=== PATIENT | male | born 1970 | race Caucasian/White ===

== ENCOUNTER 2017-12-11 06:49 | Inpatient (IN) | payer OTHER, BC ==
[2017-12-11] MEDS ORDERED: Meropenem 500 MG SDV ONE ×2 (07:14→11:17)
[2017-12-11] MEDS ORDERED: fentaNYL 250 MCG/5 ML SDV ONE ×2 (07:19→10:49)
[2017-12-11] MEDS ORDERED: Propofol 200 MG/20 ML SDV ONE (07:20)
[2017-12-11] MEDS ORDERED: Glycopyrrolate 0.2 MG/ML 5 ML MDV ONE (07:20)
[2017-12-11] MEDS ORDERED: Rocuronium 50 MG/5 ML Vial ONE (07:20)
[2017-12-11] MEDS ORDERED: Dexamethasone 4 MG/ML SDV ONE (07:20)
[2017-12-11] MEDS ORDERED: Succinylcholine 200 MG/10 ML MDV ONE (07:20)
[2017-12-11] MEDS ORDERED: Ondansetron 4 MG/2 ML SDV ONE (07:20)
[2017-12-11] MEDS ORDERED: Neostigmine Methylsulfate 1 MG/ML 5 ML Syringe ONE (07:20)
[2017-12-11] MEDS ORDERED: Naloxone 0.4 MG/ML SDV IVPUSH PRN (07:28)
[2017-12-11] MEDS ORDERED: HYDROmorphone/Normal Saline 15 MG/30 ML PCA IV PRN (07:28)
[2017-12-11] MEDS ORDERED: Gabapentin 300 MG Cap PO ONE (07:30)
[2017-12-11] MEDS ORDERED: Acetaminophen 500 MG Tab PO ONE (07:30)
[2017-12-11] MEDS ORDERED: Scopolamine 1.5 MG Transdermal Patch TOP SCH (07:30)
[2017-12-11] MEDS ORDERED: Dextrose 5%-Lactated Ringers 1,000 ML IV SCH (07:45)
[2017-12-11] MEDS ORDERED: cefOXitin 2 GM in Sodium Chloride 0.9% 50 ML IV ONE (08:00)
[2017-12-11] MEDS ORDERED: Lidocaine 2% 100 MG/5 ML Syringe IVPUSH ONE (09:00)
[2017-12-11] MEDS ORDERED: Ropivacaine 50 ML, Dexamethasone 8 MG, EPINEPHrine 0.4 MG, Sodium Chloride 0.9% 27.6 ML NERVRT SCH ×4 (09:00)
[2017-12-11] MEDS ORDERED: Ketamine 500 MG/5 ML MDV IV SCH (09:00)
[2017-12-11] MEDS ORDERED: Bupivacaine 0.5%/EPINEPHrine 1:200,000 50 ML MDV ONE (10:03)
[2017-12-11] MEDS ORDERED: Lactated Ringers 1,000 ML ONE (10:40)
[2017-12-11] MEDS: Lidocaine 0.4%/D5W 2 GM/500 ML BAG IV SCH (12:59)
[2017-12-11] MEDS ORDERED: Labetalol 20 MG/4 ML Syringe IVPUSH PRN (14:00)
[2017-12-11] MEDS ORDERED: Ondansetron 4 MG/2 ML SDV IVPUSH PRN (14:00)
[2017-12-11] MEDS ORDERED: hydrOXYzine HCl 100 MG/2 ML SDV IM PRN (14:00)
[2017-12-11] MEDS ORDERED: Metoclopramide 10 MG/2 ML SDV IVPUSH PRN (14:00)
[2017-12-11] MEDS ORDERED: Pantoprazole 40 MG Vial IVPUSH SCH (15:00)
[2017-12-11] MEDS: Gabapentin 250 MG/5 ML Solution ML 470 ML Bottle PO SCH ×2 (15:42→21:52)
[2017-12-11] MEDS: cefOXitin 2 GM in Sodium Chloride 0.9% 50 ML IV SCH ×2 (15:43→21:51)
[2017-12-11] MEDS: Acetaminophen Soln 650 MG/20.3 ML UD Cup PO SCH ×2 (15:44→21:52)
[2017-12-11] MEDS: Liraglutide (rDNA Origin) 0.6 MG/0.1 ML 3 ML Pen SUBCUT SCH (15:48)
[2017-12-11] MEDS ORDERED: MVI, Adult with Vitamin K 10 ML, Thiamine 200 MG, Chromium/Copper/Mang/Selen/Zn 1 ML in... IV SCH ×4 (16:00)
[2017-12-11] MEDS ORDERED: Tamsulosin 0.4 MG Cap.ER PO ONE ×2 (18:56→22:00)
[2017-12-11] MEDS: Heparin Sodium 5,000 Units/ML Vial SUBCUT SCH (19:22)
[2017-12-11] MEDS: diphenhydrAMINE 50 MG/ML SDV IVPUSH PRN (21:54)
[2017-12-11] MEDS: Dextrose 5%-Lactated Ringers 1,000 ML IV SCH (22:58)
[2017-12-12] MEDS ORDERED: Iohexol 647 MG/ML 50 ML SDV PO STA (02:08)
[2017-12-12] MEDS: cefOXitin 2 GM in Sodium Chloride 0.9% 50 ML IV SCH ×4 (03:00→21:25)
[2017-12-12] MEDS: Acetaminophen Soln 650 MG/20.3 ML UD Cup PO SCH ×4 (03:00→21:23)
[2017-12-12] MEDS: Lidocaine 0.4%/D5W 2 GM/500 ML BAG IV SCH (03:00)
[2017-12-12] MEDS: Dextrose 5%-Lactated Ringers 1,000 ML IV SCH (05:13)
[2017-12-12] MEDS: Heparin Sodium 5,000 Units/ML Vial SUBCUT SCH ×2 (06:14→17:51)
[2017-12-12] MEDS ORDERED: Dextrose 5%-Lactated Ringers 1,000 ML IV SCH (08:45)
[2017-12-12] MEDS ORDERED: Loratadine 10 MG Tab PO PRN (08:50)
[2017-12-12] MEDS: SCOPOLAMINE PATCH CHECK TOP SCH (09:02)
[2017-12-12] MEDS: Gabapentin 250 MG/5 ML Solution ML 470 ML Bottle PO SCH ×3 (09:03→21:23)
[2017-12-12] MEDS: Liraglutide (rDNA Origin) 0.6 MG/0.1 ML 3 ML Pen SUBCUT SCH (09:03)
--- NOTE | 2017-12-12 09:06 | CR ---
Limited upper GI The patient is status post Will-en-Y gastric bypass. There is no extravasation of contrast. The mo deirdre pouch empties readily into a nondilated Will limb. No complications are evident. Impression: 1. Status post Will-en-Y gastric bypass without evidence for complication.
[2017-12-12] MEDS: Famotidine 20 MG Tab PO SCH (10:37)
[2017-12-12] MEDS: Lisinopril 2.5 MG Tab PO SCH (10:37)
[2017-12-12] MEDS: Docusate Sodium 100 MG Cap PO SCH ×2 (10:37→21:24)
[2017-12-12] MEDS: Bisacodyl 5 MG Tab PO SCH ×2 (10:37→21:24)
[2017-12-12] MEDS: HYDROmorphone 2 MG Tab PO PRN ×2 (11:37→19:30)
[2017-12-12] MEDS: Haloperidol 5 MG Tab PO PRN (12:00)
[2017-12-12] MEDS ORDERED: Haloperidol Lactate 5 MG/ML SDV IM ONE (12:00)
[2017-12-12] MEDS: MVI, Adult with Vitamin K 10 ML, Thiamine 200 MG, Chromium/Copper/Mang/Selen/Zn 1 ML in... IV SCH ×4 (15:47)
[2017-12-12] MEDS: Tamsulosin 0.4 MG Cap.ER PO SCH (21:25)
[2017-12-12] MEDS: diphenhydrAMINE 50 MG/ML SDV IVPUSH PRN (23:01)
[2017-12-13] MEDS: Acetaminophen Soln 650 MG/20.3 ML UD Cup PO SCH ×4 (03:29→21:47)
[2017-12-13] MEDS: cefOXitin 2 GM in Sodium Chloride 0.9% 50 ML IV SCH ×2 (03:30→09:40)
[2017-12-13] MEDS: Heparin Sodium 5,000 Units/ML Vial SUBCUT SCH ×2 (05:49→17:02)
[2017-12-13] MEDS: Gabapentin 250 MG/5 ML Solution ML 470 ML Bottle PO SCH ×3 (08:09→21:47)
[2017-12-13] MEDS: HYDROmorphone 2 MG Tab PO PRN ×4 (08:09→21:46)
[2017-12-13] MEDS ORDERED: Polyethylene Glycol 3350 Powder 119 GM Bottle PO ONE (08:30)
[2017-12-13] MEDS ORDERED: Cyanocobalamin (Vitamin B12) 1,000 MCG/ML SDV IM ONE (09:00)
[2017-12-13] MEDS: Famotidine 20 MG Tab PO SCH (09:30)
[2017-12-13] MEDS: Bisacodyl 5 MG Tab PO SCH ×2 (09:30→21:46)
[2017-12-13] MEDS: SCOPOLAMINE PATCH CHECK TOP SCH (09:31)
[2017-12-13] MEDS: Lisinopril 2.5 MG Tab PO SCH (09:31)
[2017-12-13] MEDS: Liraglutide (rDNA Origin) 0.6 MG/0.1 ML 3 ML Pen SUBCUT SCH (09:32)
[2017-12-13] MEDS: Docusate Sodium 100 MG Cap PO SCH ×2 (09:34→21:47)
[2017-12-13] MEDS: Haloperidol 5 MG Tab PO PRN (09:52)
--- NOTE | 2017-12-13 10:49 | PN ---
DATE OF SERVICE: 12/13/2017 SUBJECTIVE: Amrit is postoperative day #2. He states his pain is controlled. He is not passing gas and has not had a bowel movement. REVIEW OF SYSTEMS: Remainder of review of systems negative for any pertinent positives and negatives. OBJECTIVE: GENERAL: Amrit Kimbrough is a 47-year-old male. He is alert and orientated. VITAL SIGNS: TPR 96.8, 80, 16, and blood pressure 119/58. HEENT: Negative. NECK: Supple. HEART: Regular rate and rhythm. LUNGS: Clear. ABDOMEN: Incisions look good. Abdominal binder is on. EXTREMITIES: Without peripheral edema. ASSESSMENT: Diagnostic laparoscopy with lysis of adhesions, small bowel resection, mobilization of omentum over anastomosis to separate from mesh and pelvic sidewall for extensive intraabdominal adhesions, partial small bowel obstruction adjunct to and involving the jejunojejunostomy junction, and there was no recurrent incisional hernia. Date of surgery, 12/11/2017. Surgeon, Chao Hutson MD. PLAN: 1. Rx MiraLAX 119 grams in 32 ounces of Gatorade or G2. 2. Good pulmonary toilet. 3. Continue ambulation. 4. We will evaluate p.r.n. or in a.m. Felicitas Vazquez PA-C /[id number]
[2017-12-13] MEDS: MVI, Adult with Vitamin K 10 ML, Thiamine 200 MG, Chromium/Copper/Mang/Selen/Zn 1 ML in... IV SCH ×4 (17:02)
--- NOTE | 2017-12-13 17:46 | PN ---
DATE OF SERVICE: 12/12/2017 The patient has been afebrile with stable vital signs. Blood sugar control has been good with Victoza alone and we will begin a step-3 diet today and move him over to oral pain medication and restart some medications. He may be ready for discharge home tomorrow. Chao Hutson MD /[id number]
[2017-12-13] MEDS: Tamsulosin 0.4 MG Cap.ER PO SCH (21:47)
[2017-12-13] MEDS: diphenhydrAMINE 50 MG/ML SDV IVPUSH PRN (21:47)
[2017-12-14] MEDS: Acetaminophen Soln 650 MG/20.3 ML UD Cup PO SCH ×2 (03:18→10:06)
[2017-12-14] MEDS: diphenhydrAMINE 50 MG/ML SDV IVPUSH PRN (03:20)
[2017-12-14] MEDS: Heparin Sodium 5,000 Units/ML Vial SUBCUT SCH (05:45)
[2017-12-14] MEDS: Liraglutide (rDNA Origin) 0.6 MG/0.1 ML 3 ML Pen SUBCUT SCH (08:17)
[2017-12-14] MEDS: Famotidine 20 MG Tab PO SCH (08:17)
[2017-12-14] MEDS: Bisacodyl 5 MG Tab PO SCH (08:19)
[2017-12-14] MEDS: Docusate Sodium 100 MG Cap PO SCH (08:19)
[2017-12-14] MEDS: Lisinopril 2.5 MG Tab PO SCH (08:19)
[2017-12-14] MEDS: Gabapentin 250 MG/5 ML Solution ML 470 ML Bottle PO SCH (08:29)
[2017-12-14 08:30] VITALS: BP 124/71
--- NOTE | 2017-12-14 09:59 | DISCH ---
ADMISSION DIAGNOSES: Partial small bowel obstruction, questionable ventral hernia status post Will-en-Y gastric bypass surgery unspecified surgical malabsorption, B12 deficiency, gastroesophageal reflux disease, hepatic fibrosis, fatty liver, migraine headaches, reactive hypoglycemia, diabetic neuropathy, controlled diabetes type 2. DISCHARGE DIAGNOSES: Diagnostic laparoscopy with lysis of adhesions, small bowel resection, mobilization of omentum over anastomosis to separate from mesh and pelvic sidewall for extensive intraabdominal adhesions, partial small bowel obstruction adjunct to and involving the jejunojejunostomy junction and there was no recurrent incisional hernia. Date of surgery 12/11/2017. Surgeon, Chao Hutson MD. HISTORY: Amrit Kimbrough is a 47-year-old male with recurrent postprandial abdominal pain. After preoperative evaluation and discussion of possible risks and possible complications, he wished to proceed with surgical procedure. HOSPITAL COURSE: Amrit had his surgery on 12/11/2017. He had no operative complications. On postoperative day 1, he was started on a diet and tolerated that well. His activity was good. He was changed to oral pain medication. On postoperative day 2, he was given bowel stimulation and he was able to be discharged on postoperative day 3 without any complications. PHYSICAL EXAMINATION: GENERAL: Amrit Kimbrough is a 47-year-old male, alert and orientated, color pale. VITAL SIGNS: Height 5 feet 9 inches. Weight is 234 pounds. TPR 98.1, 85, 16. Blood pressure 119/63. HEENT: Negative. NECK: Supple. HEART: Regular rate and rhythm. LUNGS: Clear. ABDOMEN: Sutures intact. Abdominal binder is on. EXTREMITIES: Without peripheral edema. DISPOSITION: Discharged to home. CONDITION: Stable and improving. FOLLOWUP: Followup appointment with Felicitas Vazquez PA-C at [place], [place] on 12/19/2017 at 9:30 a.m. HOME MEDICATIONS: 1. Tylenol 650 mg oral q.6 hours p.r.n. pain. 2. Dilaudid 2 mg 1 to 2 every 4 hours p.r.n. pain #40. He is to resume his home medications: 1. Calcium citrate 500 mg b.i.d. 2. Vitamin B12, 5000 mcg sublingual daily. 3. Bentyl (Dicyclomine) 10 mg oral q.6 hours p.r.n. gas and bloating. 4. Echinacea 125 mg oral daily. 5. Famotidine 40 mg oral daily at bedtime. 6. Victoza 1.2 mg subcu daily. 7. Lisinopril 2.5 mg oral daily. 8. Claritin 10 mg oral daily p.r.n. congestion. 9. Multivitamin 1 chewable twice daily. 10.Phenergan 25 mg oral q.6 hours p.r.n. nausea. 11.Imitrex 100 mg oral as directed p.r.n. headaches. 12.Imitrex as needed for migraine. 13.B complex one tablet daily. 14.Benadryl 25 mg every 6 hours p.r.n. allergies. DIET: Step-3 gastric bypass diet. Drink 8 to 10 glasses of water a day. ACTIVITY: As tolerated. No lifting over 10 pounds for 6 weeks[address] Driving, do not drive while on narcotic medication. Shower/bathing, may shower. DISCHARGE INSTRUCTIONS: Notify provider if any fever, increased pain, swelling, redness, drainage, nausea, or vomiting. Wound incision care; keep site clean and dry. Wear abdominal binder for 6 weeks and then as tolerated. SPECIAL INSTRUCTIONS: Use incentive spirometer 10 times every hour while awake for 1 week. Check blood sugars twice a day and p.r.n. Record results and bring to clinic appointment.
[2017-12-14] MEDS: HYDROmorphone 2 MG Tab PO PRN (10:06)
--- NOTE | 2017-12-15 08:09 | OR ---
DATE OF PROCEDURE: 12/11/2017 PREOPERATIVE DIAGNOSES: 1. Partial small bowel obstruction. 2. Probable recurrent incisional hernia. POSTOPERATIVE DIAGNOSES: 1. Partial small bowel obstruction adjacent to and involving jejunojejunostomy. 2. Extensive intraabdominal adhesions. 3. No recurrent incisional hernia present. OPERATIVE PROCEDURES: Diagnostic laparoscopy with lysis of extensive adhesions. 1. Small bowel resection (79804). 2. Mobilization of omentum over anastomosis and into the pelvis to limit recurrent adhesion formation (63531). ANESTHESIA: General. OIL FIELD EQUIPMENT MECHANIC: Felicitas Vazquez PA-C. INDICATIONS FOR PROCEDURE: This is a 47-year-old presenting with crampy abdominal pain, consistent with a partial small bowel obstruction. He also has fullness in the epigastric area suggestive of possible recurrent hernia. The plan is to proceed with a diagnostic laparoscopy, laparotomy if necessary, and lysis of adhesions and/or small bowel resection and repair of any additional hernia with or without mesh depending on operative findings. The potential risks including bleeding, infection, injury to underlying viscera, problems with mesh becoming infected, the possibility of leaks from the GI tract closures were all reviewed with the patient, and he wishes to proceed. DETAILS OF PROCEDURE: The patient was taken to the operating room and placed in a supine position. After general endotracheal anesthesia was induced, a Dias catheter was inserted, and he was placed in a lithotomy position. The abdomen was then prepped and draped. Beginning in the left lower quadrant, a transverse incision was made and the peritoneal cavity entered under direct vision with an Optiview trocar and inflated to 15 mmHg pressure with CO2. Laparoscope was then reinserted. No underlying trocar insertion site injuries were seen. Following this, 4 additional trocars placed across the upper and mid-abdomen. Bilateral transversus abdominis plane blocks were then placed using standard technique with direct visualization of the needle tip in the correct location and injection of the standard solution bilaterally. The patient was noted to have quite extensive adhesions between the old mesh and the pelvic wall predominantly to the underlying omentum. Once these were taken down, it was found that the patient did not in fact have a recurrent hernia. He simply had some concavity of the mesh, it was otherwise occluding the abdominal wall hernia site quite well. The patient was noted to have roughly one-fourth segment of highly sclerotic small bowel present beginning at the jejunojejunostomy roughly one foot proximal to that. This was felt best to be resected. Segment was then divided just flush with the jejunojejunostomy on the Will limb side and then roughly a foot proximal to that, both with ZAHRAA emory, and the underlying mesentery was then divided with Harmonic scalpel. That specimen was then delivered from the field. GI tract continuity was then reestablished with a [id number] enteroenterostomy between what had been the end of the Will limb to the small bowel roughly 20 cm distal to the previous jejunojejunostomy, accomplished with 2 internal firings of the Endo-ZAHRAA 60 herndon loads, and the common opening was then closed transversely with a purple load, angles anastomosed, and mesenteric defect was then approximated with some 0 Ethibond stitch along with fibrin sealant. The abdomen was then irrigated with antibiotic-containing saline solution. There was no gross spill and it was felt that the mesh would be best left in place, although, there would be some risk of it subsequently becoming infected, to help prevent the small bowel to becoming adherent to the mesh as well as the other viscera to the pelvic sidewall. The omentum was then mobilized downward and tacked to the lower end of the pelvis behind the urinary bladder and on the pelvic sidewalls with some 3-0 Vicryl stitch. Once this was in place, no further problems were noted. Trocars were removed, the peritoneal cavity deflated. The incisions were closed with some 4-0 Vicryl stitch, after the fascia at the 12- mm site was closed with 0 Vicryl stitch. A dressing was applied. The patient was taken to the recovery room in a satisfactory condition. Physician hearing aid assistant, Felicitas Vazquez, played an essential role in assisting in this case, helping to position the patient, retract structures as needed, as well as suturing and cutting sutures when indicated. Her presence improved patient safety and decreased the operative time. Chao Hutson MD /[id number]
== END 2017-12-14 10:20 | disposition home or self-care (01) | DRG 330 ==
LOC: JP.SDSSCHI 06:49 → JP.SDS 06:50 → JP.2SS 12:15 → EDSTATUS 14:00
PROVIDERS: ADMIT Surgery; ATTEND Surgery
PROC: 0DB84ZZ Excision of Small Intestine, Percutaneous Endoscopic Approach (ICD-10-PCS; principal; 2017-12-11)
PROC: 0DN84ZZ Release Small Intestine, Percutaneous Endoscopic Approach (ICD-10-PCS; 2017-12-11)
DX: K56.51 Intestinal adhesions [bands], with partial obstruction (principal); K91.2 Postsurgical malabsorption, not elsewhere classified; E53.8 Deficiency of other specified B group vitamins; I10 Essential (primary) hypertension; Z98.84 Bariatric surgery status; Z98.0 Intestinal bypass and anastomosis status; E11.42 Type 2 diabetes mellitus with diabetic polyneuropathy; E11.21 Type 2 diabetes mellitus with diabetic nephropathy; Z79.84 Long term (current) use of oral hypoglycemic drugs; K76.0 Fatty (change of) liver, not elsewhere classified; K74.0 Hepatic fibrosis; E66.9 Obesity, unspecified; K21.9 Gastro-esophageal reflux disease without esophagitis; G43.909 Migraine, unspecified, not intractable, without status migrainosus; Z68.34 Body mass index [BMI] 34.0-34.9, adult
CPT/HCPCS: 36415; 74240; 74240-26; 82607; 82728; 82962; 83036; A9270-GY; C9113; J0171; J0330; J0694; J1100; J1170; J1200; J1644; J2001; J2185; J2405; J2704; J2710; J2795; J3010; J3411; J3420; J3490; J7030; J7042; J7050; J7120; Q9967

== ENCOUNTER 2020-05-21 07:29 | Inpatient (IN) | payer OTHER, BC ==
[~2020-05-21 07:29] MED LIST: Dexamethasone 4 MG/ML SDV ONE; Glycopyrrolate 0.2 MG/ML 5 ML MDV ONE; Neostigmine Methylsulfate 1 MG/ML 5 ML Syringe ONE; Ondansetron 4 MG/2 ML SDV ONE; Propofol 200 MG/20 ML SDV ONE; Rocuronium 50 MG/5 ML Vial ONE; Succinylcholine 200 MG/10 ML MDV ONE; fentaNYL 250 MCG/5 ML SDV ONE
[2020-05-21] MEDS ORDERED: Meropenem 500 MG SDV ONE (07:36)
[2020-05-21] MEDS ORDERED: Scopolamine 1.5 MG Transdermal Patch TOP ONE (07:45)
[2020-05-21] MEDS ORDERED: Acetaminophen 500 MG Tab PO ONE (07:45)
[2020-05-21] MEDS ORDERED: Naloxone 0.4 MG/ML SDV IVPUSH PRN (07:59)
[2020-05-21] MEDS ORDERED: diphenhydrAMINE 25 MG Cap PO PRN (07:59)
[2020-05-21] MEDS ORDERED: Ondansetron 4 MG/2 ML SDV IVPUSH PRN ×2 (07:59→14:00)
[2020-05-21] MEDS ORDERED: diphenhydrAMINE 50 MG/ML SDV IVPUSH PRN ×2 (07:59→14:00)
[2020-05-21] MEDS ORDERED: Dextrose 5%-Lactated Ringers 1,000 ML IV SCH (08:00)
[2020-05-21] MEDS: HYDROmorphone/Normal Saline 15 MG/30 ML PCA IV PRN (08:38)
[2020-05-21] MEDS ORDERED: cefOXitin 2 GM in Sodium Chloride 0.9% 50 ML IV ONE (09:00)
[2020-05-21] MEDS ORDERED: Ketamine 50 MG in Sodium Chloride 0.9% 49.5 ML IV SCH (09:15)
[2020-05-21] MEDS ORDERED: MAGNESIUM SULFATE IV SCH (09:15)
[2020-05-21] MEDS ORDERED: Ketamine 500 MG/5 ML MDV IV SCH (09:15)
[2020-05-21] MEDS ORDERED: SODIUM CHLORIDE 0.9% IV SCH (09:15)
[2020-05-21] MEDS ORDERED: fentaNYL 250 MCG/5 ML SDV ONE (09:33)
[2020-05-21] MEDS ORDERED: Magnesium Sulfate 4.5 GM in Sodium Chloride 0.9% 250 ML IV ONE (09:45)
[2020-05-21] MEDS ORDERED: Lactated Ringers 1,000 ML ONE (10:24)
[2020-05-21] MEDS: Bupivacaine 0.5% 50 ML MDV ONE ×2 (10:28→10:54)
[2020-05-21] MEDS: Lidocaine 1% with EPINEPHrine 1:100,000 50 ML MDV ONE ×2 (10:29→10:54)
[2020-05-21] MEDS ORDERED: Cyclobenzaprine 10 MG Tab PO PRN (13:04)
[2020-05-21] MEDS: Dextrose 5%-Lactated Ringers 1,000 ML IV SCH ×2 (13:16→22:30)
[2020-05-21] MEDS ORDERED: Metoclopramide 10 MG/2 ML SDV IVPUSH PRN (14:00)
[2020-05-21] MEDS ORDERED: Pantoprazole 40 MG Vial IVPUSH SCH ×2 (14:00→16:00)
[2020-05-21] MEDS ORDERED: hydrOXYzine HCL 100 MG/2 ML SDV IM PRN (14:00)
[2020-05-21] MEDS ORDERED: Acetaminophen 500 MG Tab PO PRN (14:00)
[2020-05-21] MEDS ORDERED: Calcium Gluconate 10% 1 GM/10 ML SDV IVPUSH PRN (14:00)
[2020-05-21] MEDS ORDERED: Labetalol 20 MG/4 ML Syringe IVPUSH PRN (14:00)
[2020-05-21] MEDS: cefOXitin 2 GM in Sodium Chloride 0.9% 50 ML IV SCH ×2 (15:33→20:41)
[2020-05-21] MEDS: Acetaminophen 500 MG Tab PO SCH (15:56)
[2020-05-21] MEDS ORDERED: MVI, Adult with Vitamin K 10 ML, Thiamine 200 MG, Zinc/Copper/Manganese/Selenium 1 ML i... IV SCH ×4 (16:00)
[2020-05-21] MEDS: Heparin Sodium 5,000 Units/ML Vial SUBCUT SCH (20:39)
[2020-05-21] MEDS: Doxepin 25 MG Cap PO SCH (20:40)
[2020-05-21] MEDS: Topiramate 25 MG Tab PO SCH (20:41)
[2020-05-22] MEDS: Acetaminophen 500 MG Tab PO SCH ×4 (01:00→23:52)
[2020-05-22] MEDS: cefOXitin 2 GM in Sodium Chloride 0.9% 50 ML IV SCH ×4 (02:06→20:59)
[2020-05-22] MEDS ORDERED: Iopamidol 612 MG/ML 50 ML SDV PO STA (03:21)
[2020-05-22] MEDS: Dextrose 5%-Lactated Ringers 1,000 ML IV SCH ×2 (04:47→13:25)
[2020-05-22] MEDS ORDERED: Tamsulosin 0.4 MG Cap.ER PO ONE (06:38)
[2020-05-22] MEDS ORDERED: Ondansetron 4 MG Tab.DIS PO PRN (07:10)
[2020-05-22] MEDS: HYDROmorphone/Normal Saline 15 MG/30 ML PCA IV PRN (07:55)
[2020-05-22] MEDS: Heparin Sodium 5,000 Units/ML Vial SUBCUT SCH ×2 (08:49→19:35)
[2020-05-22] MEDS: Celecoxib 200 MG Cap PO SCH ×2 (08:49→20:59)
[2020-05-22] MEDS: Lisinopril 5 MG Tab PO SCH (08:50)
[2020-05-22] MEDS: Liraglutide (rDNA Origin) 0.6 MG/0.1 ML 3 ML Pen SUBCUT SCH (08:51)
[2020-05-22] MEDS ORDERED: Doxepin 25 MG Cap PO SCH (09:00)
[2020-05-22] MEDS: SCOPOLAMINE PATCH CHECK TOP SCH (09:03)
--- NOTE | 2020-05-22 10:00 | PN ---
DATE OF SERVICE: 05/22/2020 SUBJECTIVE: Marcos is postoperative day 1. His Dias was removed around 0300. He has not voided yet. He has been up ambulating. Pain has been controlled with the use of EMBEDDED NURSE. Vital signs have been stable. He has no other concerns or questions. REVIEW OF SYSTEMS: Remainder of review of systems negative for any pertinent positives and negatives. OBJECTIVE: GENERAL: Amrit Kimbrough is a pleasant 50-year-old male. He is alert and orientated. VITAL SIGNS: TPR 97.7, 61, and 16. Blood pressure 109/54. HEENT: Negative. NECK: Supple. HEART: Regular rate and rhythm. LUNGS: Clear. ABDOMEN: Dressings dry and intact. Abdominal binder is on. EXTREMITIES: Without peripheral edema. ASSESSMENT: Exploratory laparotomy with lysis of adhesions. 1. Small bowel resection. 2. Secondary enteroenterostomy to re-establish Will-en-Y small bowel anatomy. 3. Small bowel strictureplasty. 4. Removal of portion of intraperitoneal mesh. 5. Placement of Interceed mesh. POSTOPERATIVE DIAGNOSES: 1. Partial small bowel obstruction at the jejunojejunostomy. 2. Separate small bowel stricture at previous anastomosis, biliary pancreatic limb, and common limb. 3. Segment of potentially contaminated intraperitoneal mesh. 4. Extensive intraabdominal adhesions. Date of procedure 05/21/2020. Surgeon: Chao Hutson MD. PLAN: 1. Decrease IV to 100 mL per hour, give Flomax 0.4 mg oral stat. 2. Flomax 0.4 mg at bedtime scheduled with EMBEDDED NURSE today for pain control. 3. Step 3 gastric bypass diet. 4. Discontinue cardiac monitoring. 5. We will evaluate p.r.n. or in a.m. Felicitas Vazquez PA-C /[id number]
[2020-05-22] MEDS: Pantoprazole 40 MG Delayed-Release Granules 1 Packet PO SCH (15:13)
[2020-05-22] MEDS ORDERED: MVI, Adult with Vitamin K 10 ML, Thiamine 200 MG, Zinc/Copper/Manganese/Selenium 1 ML i... IV SCH ×4 (16:00)
[2020-05-22] MEDS: Doxepin 25 MG Cap PO SCH (20:58)
[2020-05-22] MEDS: Topiramate 25 MG Tab PO SCH (20:59)
[2020-05-22] MEDS: Tamsulosin 0.4 MG Cap.ER PO SCH (20:59)
[2020-05-23] MEDS: Dextrose 5%-Lactated Ringers 1,000 ML IV SCH (01:51)
[2020-05-23] MEDS: cefOXitin 2 GM in Sodium Chloride 0.9% 50 ML IV SCH ×2 (03:39→09:51)
[2020-05-23] MEDS ORDERED: Sodium Chloride 0.9% 10 ML Syringe IV PRN (08:32)
[2020-05-23] MEDS: oxyCODONE 5 MG Tab PO PRN ×4 (08:50→21:04)
[2020-05-23] MEDS ORDERED: Cyanocobalamin (Vitamin B12) 1,000 MCG/ML SDV IM ONE (09:00)
[2020-05-23] MEDS: Heparin Sodium 5,000 Units/ML Vial SUBCUT SCH ×2 (09:22→21:06)
[2020-05-23] MEDS: Acetaminophen 500 MG Tab PO SCH ×2 (09:23→15:59)
[2020-05-23] MEDS: Bisacodyl 5 MG Tab PO SCH ×2 (09:24→21:05)
[2020-05-23] MEDS: Docusate Sodium 100 MG Cap PO SCH ×2 (09:24→21:05)
[2020-05-23] MEDS: Celecoxib 200 MG Cap PO SCH ×2 (09:24→21:05)
[2020-05-23] MEDS: Lisinopril 5 MG Tab PO SCH (09:25)
[2020-05-23] MEDS: Liraglutide (rDNA Origin) 0.6 MG/0.1 ML 3 ML Pen SUBCUT SCH (09:26)
[2020-05-23] MEDS: SCOPOLAMINE PATCH CHECK TOP SCH (10:51)
[2020-05-23] MEDS ORDERED: Haloperidol 5 MG Tab PO PRN (12:40)
[2020-05-23] MEDS: Pantoprazole 40 MG Delayed-Release Granules 1 Packet PO SCH (15:59)
[2020-05-23] MEDS: Doxepin 25 MG Cap PO SCH (21:05)
[2020-05-23] MEDS: Topiramate 25 MG Tab PO SCH (21:05)
[2020-05-23] MEDS: Tamsulosin 0.4 MG Cap.ER PO SCH (21:06)
[2020-05-24] MEDS: oxyCODONE 5 MG Tab PO PRN ×3 (00:47→09:16)
[2020-05-24] MEDS: Acetaminophen 500 MG Tab PO SCH ×2 (00:47→08:24)
[2020-05-24 08:23] VITALS: BP 107/63; PULSE 78
[2020-05-24] MEDS: Bisacodyl 5 MG Tab PO SCH (08:24)
[2020-05-24] MEDS: Celecoxib 200 MG Cap PO SCH (08:24)
[2020-05-24] MEDS: Heparin Sodium 5,000 Units/ML Vial SUBCUT SCH (08:24)
[2020-05-24] MEDS: Docusate Sodium 100 MG Cap PO SCH (08:24)
[2020-05-24] MEDS: Liraglutide (rDNA Origin) 0.6 MG/0.1 ML 3 ML Pen SUBCUT SCH (08:25)
[2020-05-24] MEDS: Lisinopril 5 MG Tab PO SCH (08:27)
[2020-05-24] MEDS ORDERED: Magnesium Hydroxide 400 MG/5 ML Susp 30 ML Cup PO ONE (09:00)
--- NOTE | 2020-05-24 16:37 | PN ---
DATE OF SERVICE: 05/23/2020 The patient has been afebrile with stable vital signs. Urine output has been quite good. We will saline lock the IV today. We will go over to oral pain medication. We will begin some bowel stimulation. Continue step 3 diet. He maybe ready for discharge home tomorrow. Chao Hutson MD /[id number]
--- NOTE | 2020-05-25 09:46 | CR ---
[facility] HISTORY: Postbariatric surgery FINDINGS: Patient swallowed water-soluble contrast. Upright views of the abdomen show no evidence of extravasation or obstruction. IMPRESSION: Status post bariatric surgery No extravasation or obstruction seen
--- NOTE | 2020-05-25 15:12 | DISCH ---
FINAL DIAGNOSES: 1. Partial small bowel obstruction at jejunojejunostomy. 2. Separate small bowel stricture at previous anastomosis between biliopancreatic and common limb of small bowel. 3. Segment of potentially contaminated intraperitoneal mesh. 4. Extensive intraabdominal adhesions. SECONDARY DIAGNOSES: 1. Bariatric surgery status. 2. Type 2 diabetes mellitus, now in resolution but associated with intermittent hypoglycemia. 3. Diabetic neuropathy. 4. Hyperlipidemia. 5. History of migraine headaches. 6. History of nonalcoholic fatty liver disease. OPERATIVE PROCEDURE: This was done on 05/21/2020. The patient was admitted, underwent exploratory laparotomy, and found extensive adhesions. Primary point of obstruction appeared to be narrowing of the point where the Will limb entered the jejunojejunostomy. The patient also had a separate stricture at the junction of the biliopancreatic and common limb, and his jejunojejunostomy reconstructed such as to provide some degree of additional malabsorption given his desire to lose a few more pounds. Otherwise, the patient had some mesh in place, which was operated through. Small edge of this was not at this point covered by soft tissue well and that excised to avoid higher risk of infection of that segment of mesh. Otherwise, at this point, the patient is eating well with step 3 diet and will be discharged home with his usual medications plus Tylenol 1 g q.6 hours p.r.n.; oxycodone 5 mg q.4 hours p.r.n. pain #40; Flexeril 10 mg p.o. q.6 hours p.r.n. muscle spasm #30 refill x1, and will be sent home with 2 doses of milk of magnesia to take on a p.r.n. basis. /[id number]
--- NOTE | 2020-06-01 11:51 | OR ---
DATE OF PROCEDURE: 05/21/2020 SURGEON: Chao Hutson MD PREOPERATIVE DIAGNOSIS: Partial small bowel obstruction. POSTOPERATIVE DIAGNOSES: 1. Partial small bowel obstruction at jejunojejunostomy. 2. Separate small bowel stricture at previous anastomosis between the biliopancreatic limb and common limb. 3. A segment of potentially contaminated intraperitoneal mesh. 4. Extensive intraabdominal adhesions. OPERATIVE PROCEDURES: Exploratory laparotomy with lysis of extensive adhesions and: 1. Small bowel resection (21985). 2. Secondary enteroenterostomy to reestablish Will-en-Y small bowel anatomy (43462). 3. Small bowel stricturoplasty (01585). 4. Removal of a portion of intraperitoneal mesh (12533). 5. Placement of Interceed mesh to limit the recurrent adhesion formation between pelvic and abdominal wall and underlying viscera (32953). ANESTHESIA: General. OUTCOMES MANAGER: Felicitas Vazquez PA-C. INDICATIONS FOR PROCEDURE: The patient presents with a several-month history of progressively worsening postprandial crampy abdominal pain and bloating consistent with a partial small bowel obstruction. Plan is to proceed with exploratory laparotomy and release of bowel obstruction along with area of small bowel resection as indicated. Potential risks of procedure including bleeding, infection, injury to underlying viscera, possible recurrence of the problem over time to problems with the previously placed intraperitoneal mesh either needing to be removed and/or becoming infected were all reviewed, and the patient wishes to proceed. DETAILS OF PROCEDURE: The patient was taken to the operating room and placed in a supine position. After general endotracheal anesthesia was induced, a Dias catheter was inserted, and the abdomen was prepped and draped. A midline incision from the umbilicus up toward the xiphoid was made and carried down through the skin and subcutaneous tissue. Previously encountered intraperitoneal mesh was identified and divided for the length of the incision. For the most part, the divided mesh was at this point contained within soft tissue and with antibiotic irrigation, felt to be relatively low risk for subsequent infection. A portion of the mesh, which was not at this point covered well with soft tissue was excised and sent as a surgical specimen. At that point, extensive adhesions were taken down. The patient was noted to have a stricture at the jejunojejunostomy where the Will limb entered that anastomosis and a general dilation of the anastomosis suggestive of possible intussusception of that area as well. Given this, at this point, the mesh was packed off on each side with gauze containing meropenem and Zyvox. The previous anastomosis was then resected at 3 points with ZAHRAA emory as was the underlying mesentery and the specimen delivered from the field. At this point, GI tract continuity was then re-established with an anastomosis between what had been the distal-most biliopancreatic limb to the proximal-most common limb with an enteroenterostomy with 60 mm ZAHRAA staple. Common opening was closed transversely with the same stapler, angles anastomosed, and mesenteric defect approximated with some 3-0 Vicryl stitch. The Will-en-Y anatomy was then re-established with anastomosis between what had been the distal most Will limb to a point roughly 60 cm further distal to the original anastomosis with the same sequence of emory and closure. This was decided to provide some potential additional weight loss to the patient as had been discussed with him preoperatively. The patient was noted to have a previous anastomosis between what was at that time the biliopancreatic limb and the common limb, which was somewhat narrowed as well and this was treated by means of stricturoplasty. The antimesenteric aspect of the anastomosis was opened and firing of the ZAHRAA 60 mm stapler, followed by internal firing of the 30 mm stapler was accomplished, being closed transversely with the same stapler. The angles of anastomosis were reinforced with some 3-0 Vicryl stitch. In this case, there was no mesenteric defect to close. At this point, new gowns and gloves were obtained and the abdomen was copiously irrigated with meropenem and Zyvox-containing saline solution to limit recurrent adhesion formation between the mesh as well as the surrounding abdominopelvic wall and the underlying viscera. Interceed mesh was placed. The polypropylene mesh was then reapproximated with a running 0 Prolene stitch. Over this, fascia was closed with a #2 Vicryl stitch. Prior to closure, bilateral transverse abdominis plane blocks were placed and the fascia was also anesthetized with 1% lidocaine mixed with Marcaine. The incision was closed with 2 layers of 3-0 and 4-0 Vicryl stitch deep and emory for the skin. Dressing was applied. The patient was taken to the recovery room in satisfactory condition. There were no evident complications. Physician cataloging assistant, Felicitas Vazquez, played essential role assisting in this case, helping to position the patient, retract structures as needed, as well as suturing and cutting sutures when indicated. Her presence improved patient safety and decreased the operative time. Chao Hutson MD /[id number]
== END 2020-05-24 09:15 | disposition home or self-care (01) | DRG 327 ==
LOC: JP.SDSSCHI 07:29 → JP.SDS 07:29 → EDSTATUS 11:15 → JP.MS 11:25 → JP.SDSSCHI 12:13
PROVIDERS: ADMIT Surgery; ATTEND Surgery
PROC: 0D160ZA Bypass Stomach to Jejunum, Open Approach (ICD-10-PCS; principal; 2020-05-21)
PROC: 0DQ80ZZ Repair Small Intestine, Open Approach (ICD-10-PCS; 2020-05-21)
PROC: 0WPF0JZ Removal of Synthetic Substitute from Abdominal Wall, Open Approach (ICD-10-PCS; 2020-05-21)
PROC: 0DN80ZZ Release Small Intestine, Open Approach (ICD-10-PCS; 2020-05-21)
PROC: 3E0M05Z Introduction of Adhesion Barrier into Peritoneal Cavity, Open Approach (ICD-10-PCS; 2020-05-21)
DX: K95.89 Other complications of other bariatric procedure (principal); K56.51 Intestinal adhesions [bands], with partial obstruction; K91.2 Postsurgical malabsorption, not elsewhere classified; E11.649 Type 2 diabetes mellitus with hypoglycemia without coma; E11.42 Type 2 diabetes mellitus with diabetic polyneuropathy; E78.5 Hyperlipidemia, unspecified; G43.909 Migraine, unspecified, not intractable, without status migrainosus; K76.0 Fatty (change of) liver, not elsewhere classified; E55.9 Vitamin D deficiency, unspecified; E53.8 Deficiency of other specified B group vitamins; Z98.84 Bariatric surgery status; D50.9 Iron deficiency anemia, unspecified; E53.9 Vitamin B deficiency, unspecified; K74.00 Hepatic fibrosis, unspecified; N42.9 Disorder of prostate, unspecified
CPT/HCPCS: 74240; 74240-26; 82962; 88300; 88307; 93005; 93010; 94762; A9270-GY; C9113; J0171; J0330; J0694; J1100; J1170; J1644; J2020; J2185; J2405; J2704; J2710; J2765; J2795; J3010; J3410; J3411; J3420; J3475; J3490; J7050; J7120; J7121; Q9967

== ENCOUNTER 2021-06-21 02:38 | Inpatient (IN) | payer OTHER, BC ==
[2021-06-21] MEDS ORDERED: Bupivacaine 0.5% 50 ML MDV ONE (06:49)
[2021-06-21] MEDS ORDERED: Lidocaine 1% with EPINEPHrine 1:100,000 50 ML MDV ONE (06:49)
[2021-06-21] MEDS ORDERED: Bupivacaine 0.5%/EPINEPHrine 1:200,000 50 ML MDV ONE (06:49)
[2021-06-21] MEDS ORDERED: Ketamine 500 MG/5 ML MDV IV SCH (07:00)
[2021-06-21] MEDS ORDERED: Ketamine 20 MG in Sodium Chloride 0.9% 19.8 ML IV SCH (07:00)
[2021-06-21] MEDS ORDERED: Ondansetron 4 MG/2 ML SDV ONE (07:22)
[2021-06-21] MEDS ORDERED: Neostigmine Methylsulfate 1 MG/ML 5 ML Syringe ONE (07:22)
[2021-06-21] MEDS ORDERED: Rocuronium 50 MG/5 ML Vial ONE ×2 (07:22→12:02)
[2021-06-21] MEDS ORDERED: Dexamethasone 4 MG/ML SDV ONE (07:22)
[2021-06-21] MEDS ORDERED: Propofol 200 MG/20 ML SDV ONE (07:22)
[2021-06-21] MEDS ORDERED: Glycopyrrolate 0.2 MG/ML 5 ML MDV ONE (07:22)
[2021-06-21] MEDS ORDERED: fentaNYL 250 MCG/5 ML SDV ONE ×2 (07:22→11:39)
[2021-06-21] MEDS ORDERED: Succinylcholine 200 MG/10 ML MDV ONE (07:22)
[2021-06-21] MEDS ORDERED: Meropenem 500 MG SDV ONE (07:36)
[2021-06-21] MEDS ORDERED: Dextrose 5%-Lactated Ringers 1,000 ML IV SCH (08:30)
[2021-06-21] MEDS ORDERED: Acetaminophen 500 MG Tab PO ONE (08:30)
[2021-06-21] MEDS ORDERED: Albuterol/Ipratropium 3.0-0.5 MG/3 ML Neb Soln NEB ONE (08:45)
[2021-06-21] MEDS ORDERED: cefOXitin 2 GM in Sodium Chloride 0.9% 50 ML IV ONE ×2 (08:45)
[2021-06-21] MEDS ORDERED: Lactated Ringers 1,000 ML ONE (12:04)
[2021-06-21] MEDS ORDERED: fentaNYL 100 MCG/2 ML SDV ONE (13:20)
[2021-06-21] MEDS ORDERED: diphenhydrAMINE 25 MG Cap PO PRN ×2 (13:51→14:53)
[2021-06-21] MEDS ORDERED: Naloxone 0.4 MG/ML SDV IVPUSH PRN (13:51)
[2021-06-21] MEDS ORDERED: diphenhydrAMINE 50 MG/ML SDV IVPUSH PRN ×3 (13:51→16:00)
[2021-06-21] MEDS ORDERED: Ondansetron 4 MG/2 ML SDV IVPUSH PRN ×2 (13:51→16:00)
[2021-06-21] MEDS: HYDROmorphone/Normal Saline 6 MG/30 ML PCA Vial IV PRN ×2 (13:59→21:50)
[2021-06-21] MEDS ORDERED: Naloxone 0.4 MG/ML SDV IV PRN (14:00)
[2021-06-21] MEDS ORDERED: Ondansetron 4 MG/2 ML SDV IVPUSH ONE (14:11)
[2021-06-21] MEDS ORDERED: hydrOXYzine HCL 100 MG/2 ML SDV IM ONE (14:12)
[2021-06-21] MEDS: Cyclobenzaprine 10 MG Tab PO PRN (15:25)
[2021-06-21] MEDS ORDERED: Labetalol 20 MG/4 ML Syringe IVPUSH PRN (16:00)
[2021-06-21] MEDS ORDERED: Albuterol/Ipratropium 3.0-0.5 MG/3 ML Neb Soln INH PRN (16:00)
[2021-06-21] MEDS ORDERED: hydrOXYzine HCL 100 MG/2 ML SDV IM PRN (16:00)
[2021-06-21] MEDS ORDERED: Metoclopramide 10 MG/2 ML SDV IVPUSH PRN (16:00)
[2021-06-21] MEDS ORDERED: Acetaminophen 500 MG Tab PO PRN (16:00)
[2021-06-21] MEDS: cefOXitin 2 GM in Sodium Chloride 0.9% 50 ML IV SCH ×2 (16:31→22:12)
[2021-06-21] MEDS ORDERED: MVI, Adult with Vitamin K 10 ML, Thiamine 200 MG, Zinc/Copper/Manganese/Selenium 1 ML i... IV SCH ×4 (17:00)
[2021-06-21] MEDS ORDERED: Pantoprazole 40 MG Vial IVPUSH SCH (17:00)
[2021-06-21] MEDS: Acetaminophen 500 MG Tab PO SCH (17:39)
[2021-06-21] MEDS: LORazepam 2 MG/ML SDV IVPUSH PRN ×2 (17:40→22:09)
[2021-06-21] MEDS: Heparin Sodium 5,000 Units/ML Vial SUBCUT SCH (19:53)
[2021-06-21] MEDS: Albuterol/Ipratropium 3.0-0.5 MG/3 ML Neb Soln INH SCH (21:10)
[2021-06-21] MEDS: Topiramate 25 MG Tab PO SCH (21:12)
[2021-06-22] MEDS: Dextrose 5%-Lactated Ringers 1,000 ML IV SCH ×2 (00:02→06:13)
[2021-06-22] MEDS: Acetaminophen 500 MG Tab PO SCH ×4 (00:06→23:45)
[2021-06-22] MEDS ORDERED: Iopamidol 612 MG/ML 50 ML SDV PO STA (03:50)
[2021-06-22] MEDS: cefOXitin 2 GM in Sodium Chloride 0.9% 50 ML IV SCH ×4 (05:02→23:44)
[2021-06-22] MEDS: Albuterol/Ipratropium 3.0-0.5 MG/3 ML Neb Soln INH SCH ×4 (07:24→21:19)
[2021-06-22] MEDS ORDERED: Ondansetron 4 MG Tab.DIS PO PRN (07:38)
[2021-06-22] MEDS: Celecoxib 200 MG Cap PO SCH ×2 (08:26→21:14)
[2021-06-22] MEDS: Lisinopril 2.5 MG Tab PO SCH (08:27)
[2021-06-22] MEDS: Heparin Sodium 5,000 Units/ML Vial SUBCUT SCH ×2 (08:28→21:11)
[2021-06-22] MEDS: Bisacodyl 5 MG Tab PO SCH ×2 (08:28→21:15)
[2021-06-22] MEDS: Docusate Sodium 100 MG Cap PO SCH ×2 (08:29→21:15)
[2021-06-22] MEDS: Liraglutide (rDNA Origin) 0.6 MG/0.1 ML 3 ML Pen SUBCUT SCH (08:29)
[2021-06-22] MEDS: SCOPOLAMINE PATCH CHECK TOP SCH (08:29)
[2021-06-22] MEDS ORDERED: Tamsulosin 0.4 MG Cap.ER PO ONE (09:00)
[2021-06-22] MEDS: Haloperidol 1 MG Tab PO PRN ×2 (09:02→21:30)
[2021-06-22] MEDS: Pantoprazole 40 MG Tab.CR PO SCH (11:17)
[2021-06-22] MEDS: HYDROmorphone/Normal Saline 6 MG/30 ML PCA Vial IV PRN ×2 (12:52→21:17)
[2021-06-22] MEDS ORDERED: MVI, Adult with Vitamin K 10 ML, Thiamine 200 MG, Zinc/Copper/Manganese/Selenium 1 ML i... IV SCH ×4 (16:00)
[2021-06-22] MEDS: Cyclobenzaprine 10 MG Tab PO PRN (17:25)
[2021-06-22] MEDS: Topiramate 25 MG Tab PO SCH (21:14)
[2021-06-22] MEDS: Tamsulosin 0.4 MG Cap.ER PO SCH (21:14)
[2021-06-23] MEDS: Dextrose 5%-Lactated Ringers 1,000 ML IV SCH ×2 (02:47→13:37)
[2021-06-23] MEDS: cefOXitin 2 GM in Sodium Chloride 0.9% 50 ML IV SCH ×2 (06:16→10:59)
[2021-06-23] MEDS: Albuterol/Ipratropium 3.0-0.5 MG/3 ML Neb Soln INH SCH ×4 (07:05→21:13)
[2021-06-23] MEDS: Pantoprazole 40 MG Tab.CR PO SCH (07:44)
[2021-06-23] MEDS: Acetaminophen 500 MG Tab PO SCH ×2 (07:46→15:35)
[2021-06-23] MEDS: Heparin Sodium 5,000 Units/ML Vial SUBCUT SCH ×2 (07:47→21:07)
[2021-06-23] MEDS ORDERED: Cyanocobalamin (Vitamin B12) 1,000 MCG/ML SDV IM ONE (09:00)
[2021-06-23] MEDS: Celecoxib 200 MG Cap PO SCH ×2 (09:04→21:08)
[2021-06-23] MEDS: Docusate Sodium 100 MG Cap PO SCH ×2 (09:05→21:09)
[2021-06-23] MEDS: Bisacodyl 5 MG Tab PO SCH ×2 (09:05→21:09)
[2021-06-23] MEDS: SCOPOLAMINE PATCH CHECK TOP SCH (09:06)
[2021-06-23] MEDS: Lisinopril 2.5 MG Tab PO SCH (09:07)
[2021-06-23] MEDS: Liraglutide (rDNA Origin) 0.6 MG/0.1 ML 3 ML Pen SUBCUT SCH (09:08)
[2021-06-23] MEDS: HYDROmorphone/Normal Saline 6 MG/30 ML PCA Vial IV PRN ×2 (10:32→18:55)
[2021-06-23] MEDS: Haloperidol 1 MG Tab PO PRN (12:46)
[2021-06-23] MEDS: Tamsulosin 0.4 MG Cap.ER PO SCH (21:09)
[2021-06-23] MEDS: Topiramate 25 MG Tab PO SCH (21:10)
[2021-06-23] MEDS: Cyclobenzaprine 10 MG Tab PO PRN (21:12)
[2021-06-24] MEDS: Acetaminophen 500 MG Tab PO SCH ×4 (00:18→23:28)
[2021-06-24] MEDS ORDERED: Dextrose 5%-Lactated Ringers 1,000 ML IV SCH (07:15)
[2021-06-24] MEDS: Albuterol/Ipratropium 3.0-0.5 MG/3 ML Neb Soln INH SCH ×4 (07:28→20:33)
[2021-06-24] MEDS: Pantoprazole 40 MG Tab.CR PO SCH (07:34)
[2021-06-24] MEDS: Liraglutide (rDNA Origin) 0.6 MG/0.1 ML 3 ML Pen SUBCUT SCH (08:29)
[2021-06-24] MEDS: Celecoxib 200 MG Cap PO SCH ×2 (08:32→20:27)
[2021-06-24] MEDS: Bisacodyl 5 MG Tab PO SCH ×2 (08:32→20:28)
[2021-06-24] MEDS: Lisinopril 2.5 MG Tab PO SCH (08:32)
[2021-06-24] MEDS: Docusate Sodium 100 MG Cap PO SCH ×2 (08:32→20:28)
[2021-06-24] MEDS: Heparin Sodium 5,000 Units/ML Vial SUBCUT SCH ×2 (08:34→19:29)
[2021-06-24] MEDS: oxyCODONE 5 MG Tab PO PRN ×3 (08:52→19:31)
[2021-06-24] MEDS: Tamsulosin 0.4 MG Cap.ER PO SCH (20:27)
[2021-06-24] MEDS: Topiramate 25 MG Tab PO SCH (20:28)
[2021-06-25] MEDS: oxyCODONE 5 MG Tab PO PRN ×3 (03:23→12:32)
[2021-06-25] MEDS: Albuterol/Ipratropium 3.0-0.5 MG/3 ML Neb Soln INH SCH ×2 (07:03→10:41)
[2021-06-25] MEDS: Pantoprazole 40 MG Tab.CR PO SCH (08:27)
[2021-06-25] MEDS: Heparin Sodium 5,000 Units/ML Vial SUBCUT SCH (08:27)
[2021-06-25] MEDS: Acetaminophen 500 MG Tab PO SCH (08:27)
[2021-06-25] MEDS: Celecoxib 200 MG Cap PO SCH (08:28)
[2021-06-25] MEDS: Docusate Sodium 100 MG Cap PO SCH (08:28)
[2021-06-25] MEDS: Bisacodyl 5 MG Tab PO SCH (08:28)
[2021-06-25] MEDS: Lisinopril 2.5 MG Tab PO SCH (08:28)
[2021-06-25] MEDS: Liraglutide (rDNA Origin) 0.6 MG/0.1 ML 3 ML Pen SUBCUT SCH (08:29)
[2021-06-25 11:46] VITALS: BP 118/71; PULSE 81
== END 2021-06-25 13:00 | disposition home or self-care (01) | DRG 327 ==
LOC: JP.SDS 07:28 → EDSTATUS 10:15 → JP.MS 13:50
PROVIDERS: ADMIT Surgery; ATTEND Surgery
PROC: 0D160ZA Bypass Stomach to Jejunum, Open Approach (ICD-10-PCS; principal; 2021-06-21)
PROC: 0DB80ZZ Excision of Small Intestine, Open Approach (ICD-10-PCS; 2021-06-21)
PROC: 0DQ80ZZ Repair Small Intestine, Open Approach (ICD-10-PCS; 2021-06-21)
PROC: 0DQ80ZZ Repair Small Intestine, Open Approach (ICD-10-PCS; 2021-06-21)
PROC: 0DBW0ZZ Excision of Peritoneum, Open Approach (ICD-10-PCS; 2021-06-21)
PROC: 0WQF0ZZ Repair Abdominal Wall, Open Approach (ICD-10-PCS; 2021-06-21)
PROC: 3E0M05Z Introduction of Adhesion Barrier into Peritoneal Cavity, Open Approach (ICD-10-PCS; 2021-06-21)
DX: K95.89 Other complications of other bariatric procedure (principal); K56.600 Partial intestinal obstruction, unspecified as to cause; K43.0 Incisional hernia with obstruction, without gangrene; E87.1 Hypo-osmolality and hyponatremia; Y83.8 Other surgical procedures as the cause of abnormal reaction of the patient, or of later complication, without mention of misadventure at the time of the procedure; R19.00 Intra-abdominal and pelvic swelling, mass and lump, unspecified site; G43.909 Migraine, unspecified, not intractable, without status migrainosus; R80.9 Proteinuria, unspecified; E11.21 Type 2 diabetes mellitus with diabetic nephropathy; E78.5 Hyperlipidemia, unspecified; K21.9 Gastro-esophageal reflux disease without esophagitis; G47.33 Obstructive sleep apnea (adult) (pediatric); E60 Dietary zinc deficiency; Z98.890 Other specified postprocedural states; Z90.49 Acquired absence of other specified parts of digestive tract; Z90.89 Acquired absence of other organs; Z79.899 Other long term (current) drug therapy; Z88.5 Allergy status to narcotic agent; Z88.6 Allergy status to analgesic agent; Z87.891 Personal history of nicotine dependence; K74.00 Hepatic fibrosis, unspecified; E55.9 Vitamin D deficiency, unspecified; E53.8 Deficiency of other specified B group vitamins; E53.9 Vitamin B deficiency, unspecified; K76.0 Fatty (change of) liver, not elsewhere classified; E66.9 Obesity, unspecified; Z68.36 Body mass index [BMI] 36.0-36.9, adult
CPT/HCPCS: 74240; 74240-26; 82947; 94640; A9270-GY; C9113; J0171; J0330; J0694; J1100; J1170; J1644; J2020; J2060; J2185; J2405; J2704; J2710; J2795; J3010; J3410; J3411; J3420; J3490; J7120; J7121; J7620-GY; Q9967